=== PATIENT | male | born 2000 | race Caucasian/White ===

== ENCOUNTER 2022-07-19 13:31 | Emergency (ER) | payer MEDICAID, OTHER ==
[2022-07-19 15:22] LABS: SARS-CoV-2 NAA Rapid Test DETECTED (NotDetected)
== END 2022-07-19 16:31 | disposition home or self-care (01) ==
LOC: CSHERS 13:31
DX: U07.1 COVID-19 (principal); F17.290 Nicotine dependence, other tobacco product, uncomplicated
CPT/HCPCS: 87081; 87430; 99283